=== PATIENT | female | born 1955 | race Hispanic/Latino ===

== ENCOUNTER 2020-04-27 07:23 | Day surgery (SDC) | payer OTHER ==
[2020-04-18 11:50] LABS: BASOPHILS % (AUTO) 0.7 % (0.0-5.0); EOSINOPHILS % (AUTO) 4.3 % (0.0-8.0); LYMPHOCYTES % (AUTO) 23.3 % (21.0-51.0); MEAN CORPUSCULAR HEMOGLOBIN 23.1 pg (27.0-33.0); MEAN CORPUSCULAR HGB CONC 28.9 g/dL (32.0-36.0); MEAN CORPUSCULAR VOLUME 80.1 fL (79-99); MONOCYTES % (AUTO) 12.5 % (3.0-13.0); NEUTROPHILS % (AUTO) 58.9 % (40.0-77.0); PLATELET COUNT (AUTO) 334 K/uL (130-400); RED BLOOD CELL COUNT(AUTO) 4.37 MIL/uL (4.00-5.50); WHITE BLOOD COUNT (AUTO) 7.2 K/uL (4.8-10.8)
[2020-04-18 11:57] LABS: CREATININE 0.6 mg/dL (0.5-1.5); POTASSIUM 4.2 mmol/L (3.5-5.1)
[2020-04-19 09:10] VITALS: BP 137/90
[2020-04-24 10:00] VITALS: BP 128/83
[2020-04-24 10:29] LABS: BASOPHILS % (AUTO) 0.7 % (0.0-5.0); EOSINOPHILS % (AUTO) 3.7 % (0.0-8.0); HEMATOCRIT 33.7 % (36-48); MEAN CORPUSCULAR HEMOGLOBIN 23.8 pg (27.0-33.0); MEAN CORPUSCULAR VOLUME 79.5 fL (79-99); MONOCYTES % (AUTO) 9.9 % (3.0-13.0); NEUTROPHILS % (AUTO) 62.5 % (40.0-77.0); PLATELET COUNT (AUTO) 361 K/uL (130-400); RED BLOOD CELL COUNT(AUTO) 4.24 MIL/uL (4.00-5.50); WHITE BLOOD COUNT (AUTO) 8.7 K/uL (4.8-10.8)
[2020-04-27] VITALS (19 sets, daily range): BP systolic 128–172; BP diastolic 79–102
[~2020-04-27] VITALS: Ht 160 cm; Wt 85.9 kg
[~2020-04-27 07:23] MED LIST: ACET1TAB25 PO; CARV3.12 PO; CEFAZOLIN SODIUM 1 GM VIAL IVP SCH; IBUP-2070 PO; LACTATED RINGERS 1000ML 1,000 ML IV SCH
[2020-04-27] MEDS ORDERED: SODIUM CHLORIDE 0.9% 1000ML 1,000 ML IV ONE (07:42)
[2020-04-27] MEDS: CEFAZOLIN SODIUM 1 GM VIAL IVP SCH ×2 (08:26→12:08)
[2020-04-27] MEDS ORDERED: DEXAMETHASONE SOD PHOSPHATE 10MG/ML 1ML VIAL ONE (11:45)
[2020-04-27] MEDS ORDERED: SUCCINYLCHOLINE CHLORIDE 20 MG/ML 10 ML VIAL ONE (11:45)
[2020-04-27] MEDS ORDERED: LIDOCAINE PF 2% 5ML ABBOJECT ONE (11:45)
[2020-04-27] MEDS ORDERED: PROPOFOL 10 MG/ML 20ML VIAL IV ONE ×2 (11:46→13:37)
[2020-04-27] MEDS ORDERED: GLYCOPYRROLATE 1 MG/5 ML SYRINGE ONE (11:46)
[2020-04-27] MEDS ORDERED: NEOSTIGMINE 5MG/5ML SYR IV ONE (11:46)
[2020-04-27] MEDS ORDERED: ROCURONIUM 10MG/1ML SYR 10 MG/ML ML ONE (11:46)
[2020-04-27] MEDS ORDERED: MIDAZOLAM HCL 1 MG/ML 2ML VIAL ONE (11:46)
[2020-04-27] MEDS ORDERED: ONDANSETRON HCL 4 MG/2 ML VIAL ONE (11:46)
[2020-04-27] MEDS ORDERED: FENTANYL CITRATE PF 50 MCG/1 ML 2ML VIAL ONE ×2 (11:47→12:33)
[2020-04-27] MEDS ORDERED: ROPIVACAINE 0.5% 5MG/ML 30ML IJ ONE (11:58)
[2020-04-27] MEDS ORDERED: KETOROLAC TROMETHAMINE 30MG/ML ONE (12:32)
[2020-04-27] MEDS ORDERED: EPHEDRINE SULFATE 50 MG/ML AMPULE ONE (12:49)
[2020-04-27] MEDS ORDERED: MEPERIDINE-PF 25 MG/ML SYG ONE (14:17)
== END 2020-04-27 16:00 | disposition home or self-care (01) ==
LOC: DAH 07:23
PROVIDERS: ATTEND Orthopaedic Surgery
DX: S52.532A Colles' fracture of left radius, initial encounter for closed fracture (principal); I10 Essential (primary) hypertension; E66.01 Morbid (severe) obesity due to excess calories; I45.10 Unspecified right bundle-branch block; Z68.33 Body mass index [BMI] 33.0-33.9, adult; X58.XXXA Exposure to other specified factors, initial encounter; Y93.89 Activity, other specified; Y92.89 Other specified places as the place of occurrence of the external cause; Y99.8 Other external cause status; Z20.828 Contact with and (suspected) exposure to other viral communicable diseases
CPT/HCPCS: 25609; 36415 ×2; 64417; 73110; 76942; 80048; 85025 ×2; 93005; A4215; A4216; A4221; A4222; A4223; A4600; A4649; A4663; A4930; A6223; A6260 ×2; C1713 ×11; C1776; C9803 ×2; J0330; J0690; J1100; J1885; J2001; J2175; J2250; J2405; J2704 ×2; J2795; J3010 ×2; J3490; J7030 ×2; Q4050; Q4051; U0003 ×2; J2710